=== PATIENT | male | born 1975 | race Caucasian/White ===

== ENCOUNTER → 2020-07-25 14:08 | Outpatient (CLI) | payer BC, SELFPAY ==
--- NOTE | ~2020-07-25 | XR_ITS ---
EXAMINATION: SACRUM/COCCYX DATE: 07/25/2020 14:39 INDICATION: Low back pain after fall TECHNIQUE: Three views sacrum/coccyx FINDINGS: No prior studies for comparison. There is no displaced fracture of the sacrum. The coccyx demonstrates overall normal morphology with out acute angulation.Moderate degenerative changes at L5-S1. IMPRESSION: 1. No acute displaced osseous abnormality of the sacrum. Suspicion for occult or nondisplaced sacral fracture can either be evaluated with CT or MRI. 2. Grossly normal morphology to the coccyx without acute angulation. However, due to the wide range of normal variation of the coccyx, acute injury would be best evaluated by clinical examination and patient's symptoms. Reviewed, dictated and finalized at location B.
== END ==
PROVIDERS: PCP Family Medicine; Visit Provider Nurse Practitioner Family
DX: S39.92XA Unspecified injury of lower back, initial encounter (principal); W19.XXXA Unspecified fall, initial encounter
CPT/HCPCS: 72220

== ENCOUNTER → 2021-08-04 13:30 | Outpatient (REF) | payer BC, SELFPAY | LOC: ANHLAB 13:30 | PROVIDERS: PCP Family Medicine; Visit Provider Nurse Practitioner | DX: L72.0 Epidermal cyst (principal) | CPT/HCPCS: 88304 ==

== ENCOUNTER 2022-09-28 00:04 | Day surgery (SDC) | payer BC, SELFPAY ==
[2022-09-21 10:00] VITALS: BMI 33.9
--- NOTE | 2022-09-21 10:06 | PC.NURSE ---
Report to the Outpatient Waiting Room, entrance under the green pavilion located off [facility], at time 1000 on date 09/28/22. Planned Procedure Time: 1200. Time changes happen often and if your time is changed the preop area will call you the afternoon before. - You and your visitor will be asked to self-screen and do not enter if you have any COVID symptoms. - We encourage only one visitor and NO visitors under age 16 are allowed at this time. Your visitor will receive communication by the phone number that is given day of service. - The patient visitor is requested to social distance or may leave the building when not with patient due to restrictions. - A mask is OPTIONAL within the hospital. Patients may have clear liquids (water, carbonated beverages, clear teas, apple juice) until 3 hours prior to surgery with a maximum of 20 ounces. - No food from midnight until time of surgery Take the following medications with a SIP of water the morning of surgery: INHALER IF NEEDED Medications to discontinue per physician: N/A Date to take last dose: N/A Please no make-up, nail slovenian, hairspray, perfume, deodorant, or body powder the day of surgery. No jewelry (including any body piercings) or valuables the day of surgery, leave them at home. Please take a shower or bath the night before, or the morning of, surgery with an antibacterial soap. Wear comfortable, loose fitting clothing. - Jewelry must be removed prior to entering the operating room. Rings and piercings that are not removed may be cut off. - The hospital will not accept responsibility for valuables. - Please leave all valuables, including medications, at home the day of surgery. If you are going home after surgery, a licensed truss driver helper must drive you home. - NO public transportation without another adult. - We recommend that an adult stay with you for 24 hours following discharge. - We also recommend that you do not drive, make important decision, drink alcoholic beverages, or take any drugs that were not prescribed by your health care provider for at least 24 hours after your discharge time. Follow any additional instructions given to you from your surgeon. If you or anyone in your household have experienced Covid symptoms in the past week, please notify your surgeon or the nurse liaison at the phone number below for possible testing. Telephone instructions given to PT - LIBBY TORRES and asked if any additional questions and then verbalized understanding. Patient advised to call surgeon office or pre surgery nurse liaison [phone] if any additional questions.
--- NOTE | 2022-09-25 15:58 | P.PNAN_ITS ---
Anes - Initial Pre Proc Eval Procedure: Operation Date: 09/28/22 12:00 Proposed Procedures p Rectal Exam Under Anesthesia with Excision of External Hemorrhoids - Tobin Cardoso DO Date/Time: 09/25/22 15:58 Surgeon: Tobin Cardoso DO Pre Op Diagnosis: external hemorrhoids Patient Data Age: 47 Gender: M Height: 1.83 m Weight: 113.4 kg Allergies Allergy/AdvReac Type Severity Reaction Status Date / Time No Known Allergies Allergy Verified 09/21/22 09:59 Home Medications Medication Instructions Recorded Confirmed Type albuterol sulfate 90 mcg/actuation 1 inh inhalation Q4H PRN shortness 02/11/22 09/21/22 Rx aerosol inhaler (ProAir HFA) of breath or wheezing #6.7 grams cetirizine 10 mg capsule (Zyrtec) 10 mg PO DAILY PRN Allergy Symptoms 03/16/22 09/21/22 History Patient hx anesthesia problems: none Family hx anesthesia problems: none Results Review: All pre-operative results and documents have been reviewed as part of the pre- operative evaluation. [facility]LY [facility] Past Medical History Medical History (Updated 09/25/22 @ 15:59 by Flash Delgado MD) BMI 32.0-32.9,adult BMI 34.0-34.9,adult Bronchitis Heartburn Hemorrhoids Low vitamin D level Obesity HERLINDA (obstructive sleep apnea) Surgical History Surgical History History of surgical removal of ganglion cyst Family History Family History Mother Peripheral arterial disease Grandparent Family history of coronary artery disease Social History Social History Smoking packs per day: 0.5 Smoking cigarettes per day: 10.0 Years smoked: 15 Smoking pack-years: 7.50 Smoking status: Former smoker Tobacco type: cigarettes Smoking end date: 11/08/11 Alcohol intake: current Drinks per week: 10 Substance use: current Substance use type: marijuana Living arrangements: with family 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 Informed Consent: The patient's anesthetic plan and its attendant risks and benefits were discussed with the patient/family/POA. Questions were solicited and answers provided to the satisfaction of the patient/family/POA.
[2022-09-28] VITALS (7 sets, daily range): BP systolic 119–135; BP diastolic 78–93; PULSE 60–89; RESP 13–20; TEMP 36.2; O2SAT 100
--- NOTE | 2022-09-28 10:43 | PM.IMHP ---
H&P: HPI History of Present Illness Date/Time: 09/28/22 10:43 Chief Complaint: External hemorrhoid Narrative: 47 yo man presents for excision of external hemorrhoid. He reports no changes since last seen in office. Review of Systems Review of Systems: All systems reviewed & are unremarkable except as noted in HPI and below Constitutional: Constitutional: Denies chills, Denies fever(s), Denies headache(s) and Denies weight loss Eyes: Eyes: Denies change in vision ENT: Denies dizziness, Denies headache(s), Denies neck mass and Denies throat swelling Cardiovascular: Cardiovascular: Denies chest pain, Denies lightheadedness and Denies dyspnea Respiratory: Respiratory: Denies cough, Denies dyspnea and Denies wheezing Gastrointestinal: Gastrointestinal: Denies abdominal pain, Denies change in bowel habits, Denies nausea and Denies vomiting Genitourinary: Genitourinary: Denies hematuria and Denies dysuria Musculoskeletal: Musculoskeletal: Reports as per HPI Integumentary/Breasts: Skin/Breast: Reports as per HPI Neurologic: Denies dizziness and Denies headache(s) Allergic/Immunologic: Allergic/Immunologic: Denies throat swelling and Denies wheezing [facility] Past Medical History Medical History (Updated 09/25/22 @ 15:59 by Flash Delgado MD) BMI 32.0-32.9,adult BMI 34.0-34.9,adult Bronchitis Heartburn Hemorrhoids Low vitamin D level Obesity HERLINDA (obstructive sleep apnea) Surgical History Surgical History History of surgical removal of ganglion cyst Family History Family History Mother Peripheral arterial disease Grandparent Family history of coronary artery disease Social History Social History Smoking packs per day: 0.5 Smoking cigarettes per day: 10.0 Years smoked: 15 Smoking pack-years: 7.50 Smoking status: Former smoker Tobacco type: cigarettes Smoking end date: 11/08/11 Alcohol intake: current Drinks per week: 10 Substance use: current Substance use type: marijuana Living arrangements: with family 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 Gender identity (if verbalized by the patient): Male Spiritual care concerns: No Meds Home Medications and Allergies Home Medications Medication Instructions Recorded Confirmed Type albuterol sulfate 90 mcg/actuation 1 inh inhalation Q4H PRN shortness 02/11/22 09/21/22 Rx aerosol inhaler (ProAir HFA) of breath or wheezing #6.7 grams cetirizine 10 mg capsule (Zyrtec) 10 mg PO DAILY PRN Allergy Symptoms 03/16/22 09/21/22 History Allergies Allergy/AdvReac Type Severity Reaction Status Date / Time No Known Allergies Allergy Verified 09/28/22 10:44 Exam Const: General: no acute distress and alert Orientation/consciousness: patient oriented x3 HENMT: Head: normocephalic and atraumatic Ears: hearing grossly normal bilaterally Face/Nose/Sinus: Normal nares present Mouth: Yes Normal oral and palatal mucosa present Eyes: Periorbital: periorbital findings normal Sclera: sclerae normal EOM: EOMs intact bilaterally Neck: Neck: normal visual inspection, no lymphadenopathy and trachea midline Chest: Chest palpation & inspection: normal inspection of the chest Resp: Effort & Inspection: normal respiratory effort Auscultation: clear to auscultation bilaterally Cardio: Jugular venous distension: no JVD Rate: regular rate Rhythm: regular rhythm Heart sounds: S1 normal heart sound present and S2 normal heart sound present Peripheral pulses: Peripheral pulses 2+ throughout GI: Inspection: normal to inspection GI Palp: Yes Soft to palpation, No Tenderness to palpation present (GI), No Guarding due to palpation present (GI) and No Rebound tenderness present Percussion: Yes normal to percussion Auscultation: normal bowel so
--- NOTE | 2022-09-28 10:45 | WPDHPUPDATE1 ---
History and Physical Update Update Date/Time: 09/28/22 10:45 History and Physical has been reviewed, including an updated exam of the patient. There are NO changes in the patient's condition. Risks, benefits, and alternatives have been discussed and questions answered. Patient agrees to proceed with procedure.
[2022-09-28] MEDS: ACETAMINOPHEN 500 MG TABLET 1000 MG PO (10:46)
[2022-09-28] MEDS: LACTATED RINGERS 1,000 ML 30 ML IV CONT (10:59)
[2022-09-28] MEDS: KETOROLAC 15 MG/ML VIAL (*BKC) IV PUSH (11:00)
[2022-09-28] MEDS: LIDO 2%/EPINEPHRINE 1:100,000 50 ML VIAL INFILTRATE (12:29)
--- NOTE | 2022-09-28 12:49 | P.OP_ITS ---
Procedure Note - Detailed Date of Procedure 09/28/22 Pre-op Diagnosis external hemorrhoids Post-op Diagnosis Same Procedure Performed Rectal exam under anesthesia with external hemorrhoidectomy Surgeon Tobin Cardoso, DO Anesthesia General and Local ( 2% lidocaine with epinephrine) Indications this is a 47-year-old man who presented with external hemorrhoid that intermittently was causing swelling and bleeding. He mostly noticed blood with wiping. He denied any blood dripping into the toilet. He was found to have a right posterior external hemorrhoid skin tag on exam. Discussions were made with the patient about treatment options and decision was made to proceed with rectal exam under anesthesia with external hemorrhoidectomy. Findings Rectal exam under anesthesia was performed. Patient had a right posterior external hemorrhoid skin tag. This was possibly a sentinel tag from a prior fissure that healed. There was some scarring in the right posterior region suggestive of a possible previous fissure. The patient also had some slightly engorged internal hemorrhoid tissue, but this did not appear to be bleeding. The external hemorrhoid in the right posterior region was excised with the skin tag and this was sent to the lab for pathology. Description of Procedure Procedure as well as risks, benefits, and alternatives were discussed with the patient. Written consent was obtained and placed in chart prior to procedure. Patient was brought back to surgical suite. He was placed supine on operating table. Time-out was done to confirm patient and procedure. He was then intuba edil by the anesthesia department. He was then placed in dorsal lithotomy position in stirrups. His perirectal region was prepped and draped in sterile fashion using Betadine prep. Digital rectal exam was initially performed. A Hill-Miller anoscope was then inserted and the anal rectal canal was carefully inspected. 2% lidocaine with epinephrine was then infiltrated at the base of the right posterior external hemorrhoid. A 15 blade scalpel was used to make an elliptical incision around the hemorrhoid. The hemorrhoid tissue was completely excised using the 15 blade scalpel. Electrocautery was then used for hemostasis. The anoderm was then reapproximated using 3-0 chromic simple interrupted sutures. The area was irrigated with sterile saline. No other bleeding or abnormalities were noted. Xeroform gauze was then applied over the incision followed by fluff gauze, ABD pad, and mesh underwear. Patient was then awakened from anesthesia, extubated, and transferred to recovery. Estimated Blood Loss 5 Pathology Yes ( External hemorrhoid) Complications No immediate complications Condition Stable Disposition Same day [facility] Billing Surgery - Charge Forward: Surgery Billing
== END 2022-09-28 14:07 | disposition home or self-care (01) ==
PROVIDERS: PCP Family Medicine; Visit Provider Surgery
PROC: (CPT 46999; principal; 2022-09-28 12:00)
DX: K64.4 Residual hemorrhoidal skin tags (principal); G47.33 Obstructive sleep apnea (adult) (pediatric); E66.9 Obesity, unspecified; Z68.32 Body mass index [BMI] 32.0-32.9, adult; Z87.891 Personal history of nicotine dependence; Z79.51 Long term (current) use of inhaled steroids; F12.90 Cannabis use, unspecified, uncomplicated
CPT/HCPCS: 46999; 88304; 88342; A9270; C9290; J1885; J2250; J2704; J3010; J7120

== ENCOUNTER 2024-03-24 08:26 | Outpatient (CLI) | payer BC, SELFPAY ==
[2024-03-24 09:00] LABS: Hematocrit 47.1 % (42.0-52.0); Hemoglobin 15.6 g/dL (14.0-18.0); Mean Corpuscular HGB Conc 33.1 g/dl (32-36); Mean Corpuscular Hemoglobin 29.6 pg (26-34); Mean Corpuscular Volume 89.4 fl (80-100); Mean Platelet Volume 10.3 fl (7.4-10.4); Platelet Count Result 253 k/mm3 (150-375); Red Blood Count 5.27 M/mm3 (4.6-6.20); White Blood Count 5.6 K/mm3 (4.5-10.0)
[2024-03-24 09:07] LABS: Alanine Aminotransferase 21 U/L (6-50); Albumin Level 4.6 g/dL (3.5-5.1); Alkaline Phosphatase 47 U/L (38-126); Anion Gap 5 mmol/L (4-12); Aspartate Amino Transferase 25 U/L (17-59); Bilirubin,Total 0.7 mg/dL (0.2-1.3); Blood Urea Nitrogen 16 mg/dL (9-20); Calcium 9.3 mg/dL (8.4-10.2); Carbon Dioxide 26 mmol/L (22-30); Chloride 107 mmol/L (98-107); Cholesterol 193 mg/dL (0-200); Estimated Glomerular Filt Rate > 60; Glucose 122 mg/dL (65-110); HDL Direct 49 mg/dL; Potassium 4.4 mmol/L (3.4-5.0); Sodium 138 mmol/L (137-145); Triglycerides 114 mg/dL (<150)
[2024-03-24 09:20] LABS: LDL Cholesterol Direct 120 mg/dL
[2024-03-24 09:32] LABS: Iron 74 ug/dL (49-181)
[2024-03-24 09:36] LABS: Vitamin D 25 Hydroxy 36.4 ng/mL
[2024-03-24 09:45] LABS: Percent Iron Saturation 24 % (20-50)
[2024-03-28 13:53] LABS: Testosterone Free 50.3 pg/mL (35.0-155.0); Testosterone Total 331 ng/dL (250-1100)
== END 2024-03-24 08:27 | disposition home or self-care (01) ==
PROVIDERS: PCP Family Medicine; Visit Provider Nurse Practitioner Family
DX: R79.89 Other specified abnormal findings of blood chemistry (principal); N52.9 Male erectile dysfunction, unspecified; G25.81 Restless legs syndrome; Z13.1 Encounter for screening for diabetes mellitus; Z13.220 Encounter for screening for lipoid disorders; Z13.29 Encounter for screening for other suspected endocrine disorder
CPT/HCPCS: 36415; 80053; 80061; 82306; 82607; 83540; 83550; 84153; 84402; 84403; 84443; 85027; G0103

== ENCOUNTER 2024-03-24 14:06 | Outpatient (CLI) | payer BC, SELFPAY ==
[2024-03-27 17:43] LABS: Prostate Specific Antigen 1.4 ng/mL (< OR = 4.0)
== END 2024-03-24 14:30 | disposition home or self-care (01) ==
LOC: ANHLAB 04-12 14:06
PROVIDERS: PCP Family Medicine; Visit Provider Nurse Practitioner Family
DX: Z12.5 Encounter for screening for malignant neoplasm of prostate (principal)
CPT/HCPCS: 36415; 84153; G0103

== ENCOUNTER 2025-03-14 12:53 | Outpatient (CLI) | payer BC, SELFPAY ==
--- NOTE | 2025-03-14 14:30 | NEURO_ITS ---
Impression: # Complains of numbness of feet.No h/o diabetes. ? # Early axonal motor/sensory neuropathy. ? # Needle/EMG exam mildly neurogenic in bilateral EDB. Nerve Conduction Studies Anti Sensory Summary Table ?Stim Site NR Peak (ms) P-T Amp (?V) Site1 Site2 Delta-P (ms) Dist (cm) Hernandez (m/s) Left Sup Fibular Anti Sensory (Ant Lat Mall) 14 cm ? 3.7 7.0 14 cm Ant Lat Mall 3.7 16.0 43 Right Sup Fibular Anti Sensory (Ant Lat Mall) 14 cm ? 3.9 10.5 14 cm Ant Lat Mall 3.9 16.0 41 Left Sural Anti Sensory (Lat Mall) Calf ? 4.3 16.2 Calf Lat Mall 4.3 16.0 37 Right Sural Anti Sensory (Lat Mall)??? NO RESPONSE Calf NR Calf Lat Mall 16.0 Motor Summary Table ?Stim Site NR Onset (ms) O-P Amp (mV) Site1 Site2 Delta-0 (ms) Dist (cm) Hernandez (m/s) Left Peroneal Motor (Vastus Med) Ankle ? 4.8 0.4 Popit Ankle 10.1 44.0 44 Popit ? 14.9 2.4 Right Peroneal Motor (Vastus Med) Ankle ? 4.8 1.2 Popit Ankle 9.6 43.0 45 Popit ? 14.4 1.0 Left Tibial Motor (Abd Urrutia Brev) Ankle ? 4.7 0.7 Knee Ankle 11.0 44.0 40 Knee ? 15.7 1.7 Right Tibial Motor (Abd Urrutia Brev) Ankle ? 4.7 4.0 Knee Ankle 10.1 43.0 43 Knee ? 14.8 2.9 F Wave Studies ?NR F-Lat (ms) L-R F-Lat (ms) Left Peroneal (Mrkrs) (EDB) ? 62.98 1.29 Right Peroneal (Mrkrs) (EDB) ? 61.69 1.29 Left Tibial (Mrkrs) (Abd Hallucis) ? 62.91 1.61 Right Tibial (Mrkrs) (Abd Hallucis) ? 61.30 1.61 EMG ?Side Muscle Nerve Root Ins Act Fibs Amp Dur Recrt Comment Right AntTibialis Dp Br Fibular L4-5 Nml Nml Nml Nml Nml Right Gastroc Tibial S1-2 Nml Nml Nml Nml Nml Right Fibularis Long Sup Br Fibular L5-S1 Nml Nml Nml Nml Nml Right Flex Dig Long Tibial L5-S2 Nml Nml Nml Nml Nml Right Ext Dig Brev Dp Br Fibular L5, S1 Nml Nml Nml >12ms +1 Right QuadratusFem QuadFemoris L4-5, S1 Nml Nml Nml Nml Nml Left AntTibialis Dp Br Fibular L4-5 Nml Nml Nml Nml Nml Left Gastroc Tibial S1-2 Nml Nml Nml Nml Nml Left Fibularis Long Sup Br Fibular L5-S1 Nml Nml Nml Nml Nml Left Flex Dig Long Tibial L5-S2 Nml Nml Nml Nml Nml Left Ext Dig Brev Dp Br Fibular L5, S1 Nml Nml Nml >12ms +1 Left QuadratusFem QuadFemoris L4-5, S1 Nml Nml Nml Nml Nml MTDD
== END 2025-03-14 12:54 | disposition home or self-care (01) ==
LOC: ANHNEURO 12:57
PROVIDERS: PCP Family Medicine; Visit Provider Family Medicine
DX: G60.0 Hereditary motor and sensory neuropathy (principal)
CPT/HCPCS: 95886; 95910

== ENCOUNTER 2025-03-26 07:46 | Outpatient (CLI) | payer BC, SELFPAY ==
[2025-03-26 08:04] LABS: Hematocrit 46.8 % (42.0-52.0); Hemoglobin 15.4 g/dL (14.0-18.0); Mean Corpuscular HGB Conc 32.9 g/dl (32-36); Mean Corpuscular Hemoglobin 29.2 pg (26-34); Mean Corpuscular Volume 88.8 fl (80-100); Mean Platelet Volume 9.9 fl (7.4-10.4); Platelet Count Result 253 k/mm3 (150-375); Red Blood Count 5.27 M/mm3 (4.6-6.20); Red Cell Distribution Width 13.2 % (11.5-14.5); White Blood Count 7.7 K/mm3 (4.5-10.0)
[2025-03-26 08:16] LABS: Anion Gap 6 mmol/L (4-12); Blood Urea Nitrogen 18 mg/dL (9-20); Calcium 9.4 mg/dL (8.4-10.2); Carbon Dioxide 32 mmol/L (22-30); Chloride 103 mmol/L (98-107); Cholesterol 235 mg/dL (0-200); Estimated Glomerular Filt Rate > 60; Glucose 113 mg/dL (65-110); HDL Direct 68 mg/dL; Potassium 4.2 mmol/L (3.4-5.0); Sodium 141 mmol/L (137-145); Triglycerides 127 mg/dL (<150)
[2025-03-26 08:23] LABS: Hemoglobin A1C 5.4 % (<5.7)
[2025-03-26 08:27] LABS: LDL Cholesterol Direct 124 mg/dL
[2025-03-26 08:46] LABS: Prostate Specific Antigen 1.5 ng/mL (< OR = 4.0)
[2025-03-26 09:29] LABS: Free T4 Free Thyroxine 1.21 ng/dL (0.78-2.19); Vitamin D 25 Hydroxy 49.1 ng/mL
== END 2025-03-26 07:47 | disposition home or self-care (01) ==
PROVIDERS: PCP Family Medicine; Referring Provider Physician Assistant Medical; Visit Provider Family Medicine
DX: Z13.220 Encounter for screening for lipoid disorders (principal); Z12.5 Encounter for screening for malignant neoplasm of prostate; R73.09 Other abnormal glucose; R20.0 Anesthesia of skin; R20.2 Paresthesia of skin; R79.89 Other specified abnormal findings of blood chemistry; E55.9 Vitamin D deficiency, unspecified
CPT/HCPCS: 36415; 80048; 80061; 82306; 82607; 83036; 84153; 84439; 84443; 85027; G0103

== ENCOUNTER 2025-04-11 07:52 | Outpatient (CLI) | payer BC, SELFPAY ==
--- NOTE | ~2025-04-11 | MR_ITS ---
MRI of the lumbar spine Clinical History: Anesthesia scan Technique: Axial T2-weighted images, and sagittal T1-weighted, T2-weighted, and and T2 fat-sat images were acquired. Findings: There is no fracture or subluxation of the lumbar spine. Vertebral bodies maintain normal h eight and alignment. No bone marrow signal abnormality seen. At L1-L2, L2-L3, L3-L4, the intervertebral discs maintain normal signal and position. No disc bulge o r herniation at these levels. No spinal canal stenosis or neural foraminal narrowing at these levels. At L4-L5, there is moderate degenerative distended. There is diffuse disc bulge with mild to moderate facet arthropathy. No central canal stenosis. There is preservation of the right neural foramen. The re is minimal right neural foraminal narrowing. At L5-S1, there is severe degenerative disc narrowing. There is mild disc bulge with moderate facet a rthropathy. No central canal stenosis. There is mild to moderate left neural foraminal narrowing. Rig ht neural foramen preserved. Paravertebral soft tissues are unremarkable. Impression: [id number] degenerative spondylitic changes at L4-L5 and L5-S1, as detailed above. Reviewed, dictated and finalized at location M. Impression: [id number] degenerative spondylitic changes at L4-L5 and L5-S1, as detail ed above.
== END 2025-04-11 07:53 | disposition home or self-care (01) ==
PROVIDERS: PCP Family Medicine; Visit Provider Physician Assistant Medical
DX: M47.816 Spondylosis without myelopathy or radiculopathy, lumbar region (principal); M47.817 Spondylosis without myelopathy or radiculopathy, lumbosacral region; G25.81 Restless legs syndrome
CPT/HCPCS: 72148

== ENCOUNTER 2025-05-10 12:47 | Outpatient (CLI) | payer BC, SELFPAY ==
--- NOTE | 2025-05-21 14:43 | PFT_ITS ---
This report was moved to the correct visit on 05/23/2025. The original report was signed by Charles Alex MD on 05/21/25 [id number]. PFT Procedure Performed PFT Procedure Performed Spirometry with Pre/Post Bronchodilator Plethysmography (Lung Vol) Diffusing Cap (DLCO) Flow Vol Loop PFT Interpretation This is a pulmonary function test with pre and post-bronchodilator spirometry, plethysmography and diffusing capacity. The test was performed and results interpreted in accordance with the 2019 and 2005 ATS/ERS Task Force guidelines respectively using the Global Lung Function Initiative-2012 reference equations. Patient demonstrated good effort and cooperation. Reproducibility criteria were met. The quality of the pre bronchodilator spirometry maneuver was Grade A and post bronchodilator spirometry maneuver was Grade A. Findings: Spirometry: There is decreased maximal expiratory airflow at all lung volumes with concave expiratory flow tracing. The contour the inspiratory flow tracing is normal. The pre bronchodilator FVC is 3.70 L, 69% predicted. The pre bronchodilator FEV1 is 2.62 L, 62% predicted. The pre bronchodilator FEV1: FVC ratio 71%. The post bronchodilator FVC is 3.99 L, representing an 8% increase. The post bronchodilator FEV1 is 2.93 L, representing a 12% increase. The post bronchodilator FEV1: FVC ratio is 73%. Plethysmography: The total lung capacity is 6.08 L, 82% predicted. The functional residual capacity is 2.97 L, 78% predicted. The residual volume is 1.97 L, 93% predicted. The slow vital capacity is 4.11 L, 76% predicted. Diffusing capacity: The diffusing capacity unadjusted for hemoglobin and carboxyhemoglobin is 23.8, 75% predicted. The diffusing capacity adjusted for alveolar volume is 5.03, 112% predicted. Impression: The FEV1 is less than 80% predicted and the FEV1: FVC ratio is greater than 70% consistent with Preserved Ratio Impaired Spirometry (PRISm) with a low FVC. In addition, the slow vital capacity is greater than forced vital capacity with a concave expiratory tracing. This is suggestive of small airways disease. There is significant improvement after inhaling a single dose of albuterol. The lung volumes are normal. The diffusing capacity is normal. There are no prior studies for comparison Please be advised this is a medical document. It is intended for [id number] communication. It is written in medical language and may contain unfamiliar abbreviations or verbiage. Medical documents are intended to carry relevant information, facts as evident, and the clinical opinion of the practitioner at the time of the encounter. This report may have been done utilizing a voice recognition system. Attempts have been made to correct errors. However, there may be uncorrected grammatical, spelling, and recognition errors present. The file time of this note does not necessarily represent the time the patient was seen. Report Initialized date/time: Charles Alex MD 05/21/25 / 1443 Electronically signed by: Charles Alex MD 05/21/25 [id number]
--- NOTE | 2025-06-02 20:12 | P.PCNPFT_ITS ---
PFT Procedure Performed PFT Procedure Performed Spirometry with Pre/Post Bronchodilator Plethysmography (Lung Vol) Diffusing Cap (DLCO) Flow Vol Loop PFT Interpretation DOS: 05/10/2025 REQUESTING: MARCELO Case REASON FOR TESTING: Cough PULMONARY FUNCTION TESTS Results are reliable and reproducible. Repeatability of spirometry FEV1 maneuver pre and post bronchodilator is Grade A. Dillon: GLI 2012 reference equations were used. Spirometry: The pre-bronchodilator FEV1 is 2.62 L, 62%, decreased. The pre- bronchodilator FVC is 3.70 L, 69%, decreased. The FEV1/FVC ratio is 71%, normal. After bronchodilator, the FEV1 is 2.93 L, 69%, +12%. After bronchodilator, the FVC is 3.99 L, 74%, +8%. The FEV1/FVC ratio is 73%. Lung volumes: The total lung capacity is 6.08 L, 82%, normal. The FRC is 2.97 L, 78%, normal. The residual volume is 1.97 L, 93%, normal. The RV/TLC is 32%. Airway resistance is increased. Diffusion: DLCO is 23.8, 75%. The DLCO/VA is 5.03, 112%. Flow volume loop: The flow volume loop shows coving of the expiratory limb. IMPRESSION: This study shows a moderate decrease in FEV1 with normal FEV1/FVC ratio. Kendra Herrera MD
== END 2025-05-10 12:48 | disposition home or self-care (01) ==
PROVIDERS: PCP Family Medicine; Visit Provider Physician Assistant Medical
DX: R05.9 Cough, unspecified (principal); R06.02 Shortness of breath
CPT/HCPCS: 94060; 94726; 94729

== ENCOUNTER 2025-05-21 08:02 | Outpatient (CLI) | payer BC, SELFPAY ==
--- NOTE | 2025-05-21 14:40 | WPDPFTINT ---
PFT Procedure Performed PFT Procedure Performed Spirometry with Pre/Post Bronchodilator Plethysmography (Lung Vol) Diffusing Cap (DLCO) Flow Vol Loop PFT Interpretation This is a pulmonary function test with pre and post-bronchodilator spirometry, plethysmography and diffusing capacity. The test was performed and results interpreted in accordance with the 2019 and 2005 ATS/ERS Task Force guidelines respectively using the Global Lung Function Initiative-2012 reference equations. Patient demonstrated good effort and cooperation. Reproducibility criteria were met. The quality of the pre bronchodilator spirometry maneuver was Grade A and post bronchodilator spirometry maneuver was Grade A. Findings: Spirometry: There is decreased maximal expiratory airflow at all lung volumes with concave expiratory flow tracing. The contour the inspiratory flow tracing is normal. The pre bronchodilator FVC is 3.70 L, 69% predicted. The pre bronchodilator FEV1 is 2.62 L, 62% predicted. The pre bronchodilator FEV1: FVC ratio 71%. The post bronchodilator FVC is 3.99 L, representing an 8% increase. The post bronchodilator FEV1 is 2.93 L, representing a 12% increase. The post bronchodilator FEV1: FVC ratio is 73%. Plethysmography: The total lung capacity is 6.08 L, 82% predicted. The functional residual capacity is 2.97 L, 78% predicted. The residual volume is 1.97 L, 93% predicted. The slow vital capacity is 4.11 L, 76% predicted. Diffusing capacity: The diffusing capacity unadjusted for hemoglobin and carboxyhemoglobin is 23.8, 75% predicted. The diffusing capacity adjusted for alveolar volume is 5.03, 112% predicted. Impression: The FEV1 is less than 80% predicted and the FEV1: FVC ratio is greater than 70% consistent with Preserved Ratio Impaired Spirometry (PRISm) with a low FVC. In addition, the slow vital capacity is greater than forced vital capacity with a concave expiratory tracing. This is suggestive of small airways disease. There is significant improvement after inhaling a single dose of albuterol. The lung volumes are normal. The diffusing capacity is normal. There are no prior studies for comparison
--- NOTE | 2025-06-17 15:32 | WPDSLEEPSTUD ---
Sleep Study Date of Study: 05/21/25 Ordering Provider: Neto Stone MD Interpreting Physician: Ni Webb, Sleep Study Type: Polysomnogram Height: 1.83 m Weight: 112.037 kg Body Mass Index: 33.5 Neck Circumference (inches): 17.5 [place]: 4 Reason for Sleep Study Previously diagnosed with HERLINDA but couldn't tolerate CPAP. Sleep History The patient is a 50-year-old male with history of sleep apnea that had a sleep study ordered by his primary care physician for re-evaluation of sleep apnea. The patient denies awakening from sleep short of breath. He rarely awakens at night with heartburn, belching or cough. He rarely snores and is never loud enough that others complain. He occasionally has trouble sleeping when he has a cold. He rarely wakes up gasping for air throughout the night. He rarely has breathing problems at night observed by himself or others. He occasionally sweats excessively at night. He denies having heart palpitations or irregular heartbeats during the night. He denies falling asleep during the day and while driving. He denies sleep paralysis and cataplexy. He denies having trouble at school or work due to sleepiness. He rarely experiences vivid dreamlike scenes upon awakening or falling asleep. He denies feeling afraid of going to sleep. He denies having nightmares. He occasionally remembers his dreams. He frequently has thoughts racing through his mind. He denies feeling sad or depressed. He occasionally has anxiety. He rarely has muscular tension. He rarely notices parts of his body jerk. He denies kicking during the night. He frequently has crawling and aching feelings in his legs and occasionally has leg pain during the night. He denies grinding his teeth during sleep and denies awakening with morning jaw pain. He is rarely awakened by pain during the night. He occasionally wakes up feeling stiff in the morning. He rarely wakes up with sore or achy muscles. He occasionally wakes up with pain in the neck, spine and other joints. He goes to bed at midnight on weekdays and between 2-3 a.m. on the weekends. He wakes up 2-3 times throughout the night to adjust his position and is able to fall back asleep quickly. He wakes up at 7:00 a.m. on weekdays and between 10 to 10:30 a.m. on the weekends. He typically gets 6-1/2-7 hours of sleep per night. He does not stay in bed long after waking up in the morning. He currently lives with his . He will occasionally consume caffeinated tea within 2 hours of bedtime. He denies engaging in physical exercise before bedtime. He will watch television before falling asleep. He denies taking naps in the afternoon or the evening. He consumes 24-32 oz of caffeinated beverage per day. He quit smoking cigarettes 13 in half years ago. He consumes 4-5 alcoholic beverages per week. He does use an unspecified recreational drug. [facility] Past Medical History Medical History HERLINDA (obstructive sleep apnea) Bronchitis BMI 32.0-32.9,adult Low vitamin D level Hemorrhoids BMI 34.0-34.9,adult Obesity Heartburn Surgical History Surgical History H/O: hemorrhoidectomy REUA, Excision of external hemrrhoids on 09/28/22 History of surgical removal of ganglion cyst Family History Family History Mother Peripheral arterial disease Grandparent Family history of coronary artery disease Social History Social History Smoking packs per day: 0.5 Smoking cigarettes per day: 10.0 Years smoked: 15 Smoking pack-years: 7.50 Smoking status: Former smoker Tobacco type: cigarettes Smoking end date: 11/08/11 Alcohol intake: current Drinks per week: 10 Substance use: current Substance use type: marijuana Do You Feel Safe in your Home?: Yes Lack of Transportation: No Lack of Food: Never True Current Housing: I Have Housing Concerned About Future Housing: No Difficulty Paying Gas/Electric Bills: No Difficulty Paying for Meds: No Currently Unemployed: No Education: High School Diploma/GED Difficulty w/ Childcare or Family Care: No Living arrangements: with family Occupation/Education: occupation Additional occupation/education comments: [employer] Gender identity (if verbalized by the patient): Male Spiritual care concerns: No Medications Home Medications ?Medication ?Instructions ?Recorded ?Confirmed ?Type gabapentin 100 mg capsule 100 mg PO QHS #90 caps 03/26/25 Rx albuterol 90 mcg-budesonide 80 2 inh inhalation ONCE #10.7 grams 05/25/25 Rx mcg/actuation HFA aerosol inhaler (Airsupra) fluticasone furoate 100 1 inh inhalation DAILY #60 ea 05/25/25 Rx mcg-vilanterol 25 mcg/dose inhalation powder (Breo Ellipta) Sleep Procedure A full night polysomnogram using the [employer] multi-channel system recorded the standard physiologic parameters including EEG, EOG, submentalis EMG, anterior tibialis EMG, EKG, body position, nasal and oral airflow using nasal pressure sensor and thermistor.? Respiratory parameters of chest and abdominal movements were recorded with Respiratory Inductance Plethysmography belts. Oxygen saturation was recorded by pulse oximetry. Video monitoring was also performed. Sleep stages, periodic limb movements, and EEG arousals were scored in 30 second epochs according to the criteria of the AASM Scoring Manual. The Apnea-Hypopnea Index was calculated using [facility] guidelines for definition of hypopnea with 4% O2 desaturations while scoring respiratory events. Sleep Architecture The total recording time was 423.2 minutes.? The total sleep time was 308.0 minutes. Sleep latency was 11.3 minutes. REM latency was 232.5 minutes. Sleep efficiency was 72.8%. The patient had 32 awakenings for an awakening index of 6.2. Wake after sleep onset time was 104.0 minutes. The patient spent 41.5 minutes, 13.5% of total sleep time in Stage N1. The patient spent 192.5 minutes, 62.5% in Stage N2. The patient spent 36.0 minutes, 11.7% in Stage N3. The patient spent 38.0 minutes, 12.3% in Stage REM sleep. Respiratory Analysis The patient had 42 hypopneas for an overall Apnea Hypopnea Index of 8.2. The REM Apnea Hypopnea Index was 56.8. The NREM Apnea Hypopnea Index was 2.0. The patient had a Central Apnea Hypopnea Index of 0. There was no evidence of Ollie-Matos Respirations. Arousals There were 116 total arousals for an arousal index of 22.6. There were 90 spontaneous arousals for an index of 17.5. There were 7 arousals due to respiratory events for an index of 1.4. There were 12 arousals due to periodic limb movements for an index of 2.3.? There were 7 arousals due to isolated limb movements for an index of 1.4. Periodic Limb Movements The patient had 14 isolated limb movements with an index of 2.7. The patient had 185 periodic limb movements with an index of 36.0, which is elevated (normal < 15). Patient had a total of 199 limb movements with a total limb movement index of 38.8. Oximetry Data The patient had an average oxygen saturation of 92.3% in sleep with a minimum oxygen saturation of 76.0% and a maximum oxygen saturation of 96.0%. The patient had 46 oxygen desaturations that were 4% or greater resulting in an Oxygen Desaturation Index of 9.0.? The patient spent 14 minutes, 3.3% of total sleep time with an oxygen saturation below 88%. Snoring Profile Mild to moderate snoring was present throughout the study. Cardiac Profile The EKG showed normal sinus rhythm with frequent PVCs and intermittent bigeminy/trigeminy. The patient had an average pulse rate of 60.7 bpm with a minimum pulse of rate of 30.0 bpm and a maximum pulse rate of 87.0 bpm.? EEG Profile No signs of seizure activity seen. Assessment and Plan Assessment and Plan (1) HERLINDA (obstructive sleep apnea): Code(s): G47.33 - Obstructive sleep apnea (adult) (pediatric) Status: Acute Assessment and Plan: The patient had an overall AHI of 8.2 with desaturation down to 76%. This is consistent with mild sleep apnea. Due to the patient's cardiac arrhythmias, he qualifies for treatment. I recommend that the patient have a CPAP Titration with the use of a hypnotic to ensure we obtain enough sleep data and find an optimal pressure setting. Due to the patient failing CPAP in the past, it would be best if he was re-introduced to CPAP in the sleep lab so we can make sure that the patient is comfortable with the mask and pressure settings to improve compliance. If his insurance company will not cover a CPAP Titration, I recommend that he be prescribed AutoPAP 5-15 cm H2O with close follow up. A mandibular advancement device is also an acceptable treatment option. The patient had a significant number of limb movements during the study with the majority being periodic in nature. The patient's sleep history suggests Restless Leg Syndrome. I recommend that the patient have a serum ferritin drawn for evaluation of iron deficiency anemia. If the patient has a serum ferritin less than 75 ng/mL, I recommend starting a daily iron supplement and a Vitamin C supplement for better absorption. If the serum ferritin is greater than 75 ng/mL, I recommend starting a dopamine agonist and titrating the dose until symptoms resolve. There are nonpharmacological methods to treat limb movements including daily exercise, stretching calf muscles before bed, avoiding excessive amounts of caffeine and alcohol, vitamin B supplementation, magnesium lotion massaged into legs before bed, and use of a weighted blanket. Data The data obtained during this sleep study is adequate for interpretation. Certification This sleep study has been reviewed by a board certified sleep medicine physician.
[2025-06-18 11:48] VITALS: BMI 33.5
== END 2025-05-22 08:02 | disposition home or self-care (01) ==
LOC: ANHCSM 08:03
PROVIDERS: PCP Family Medicine; Visit Provider Family Medicine
DX: G47.33 Obstructive sleep apnea (adult) (pediatric) (principal)
CPT/HCPCS: 95810

== ENCOUNTER 2025-07-31 08:10 | Outpatient (CLI) | payer BC, SELFPAY ==
--- NOTE | 2025-08-27 11:30 | WPDSLEEPSTUD ---
Sleep Study Date of Study: 07/31/25 Ordering Provider: Neto Stone MD Interpreting Physician: Kendra Herrera MD Sleep Study Type: CPAP Titration Height: 1.83 m Weight: 113.852 kg Body Mass Index: 34.0 Neck Circumference (inches): 18.5 [place]: 4 Reason for Sleep Study Known obstructive sleep apnea, requires a CPAP titration * 05/21/2025 PSG; AHI of 8.2, desaturation down to 76%, consistent with mild sleep apnea. Due to the patient's cardiac arrhythmias, he qualifies for treatment. I recommend that the patient have a CPAP Titration with the use of a hypnotic to ensure we obtain enough sleep data and find an optimal pressure setting. Due to the patient failing CPAP in the past, it would be best if he was re-introduced to CPAP in the sleep lab so we can make sure that the patient is comfortable with the mask and pressure settings to improve compliance. Sleep History This history is obtained from his 05/21/2025 polysomnogram. The patient is a 50-year-old male with history of sleep apnea that had a sleep study ordered by his primary care physician for re-evaluation of sleep apnea. The patient denies awakening from sleep short of breath. He rarely awakens at night with heartburn, belching or cough. He rarely snores and is never loud enough that others complain. He occasionally has trouble sleeping when he has a cold. He rarely wakes up gasping for air throughout the night. He rarely has breathing problems at night observed by himself or others. He occasionally sweats excessively at night. He denies having heart palpitations or irregular heartbeats during the night. He denies falling asleep during the day and while driving. He denies sleep paralysis and cataplexy. He denies having trouble at school or work due to sleepiness. He rarely experiences vivid dreamlike scenes upon awakening or falling asleep. He denies feeling afraid of going to sleep. He denies having nightmares. He occasionally remembers his dreams. He frequently has thoughts racing through his mind. He denies feeling sad or depressed. He occasionally has anxiety. He rarely has muscular tension. He rarely notices parts of his body jerk. He denies kicking during the night. He frequently has crawling and aching feelings in his legs and occasionally has leg pain during the night. He denies grinding his teeth during sleep and denies awakening with morning jaw pain. He is rarely awakened by pain during the night. He occasionally wakes up feeling stiff in the morning. He rarely wakes up with sore or achy muscles. He occasionally wakes up with pain in the neck, spine and other joints. He goes to bed at midnight on weekdays and between 2-3 a.m. on the weekends. He wakes up 2-3 times throughout the night to adjust his position and is able to fall back asleep quickly. He wakes up at 7:00 a.m. on weekdays and between 10 to 10:30 a.m. on the weekends. He typically gets 6-1/2-7 hours of sleep per night. He does not stay in bed long after waking up in the morning. He currently lives with his . He will occasionally consume caffeinated tea within 2 hours of bedtime. He denies engaging in physical exercise before bedtime. He will watch television before falling asleep. He denies taking naps in the afternoon or the evening. He consumes 24-32 oz of caffeinated beverage per day. He quit smoking cigarettes 13 in half years ago. He consumes 4-5 alcoholic beverages per week. He does use an unspecified recreational drug. [facility] Past Medical History Medical History (Updated 08/27/25 @ 12:43 by Kendra Herrera MD) Restless leg Dyspnea and respiratory abnormalities History of smoking 10-25 pack years Chest heaviness HERLINDA (obstructive sleep apnea) Bronchitis BMI 32.0-32.9,adult Low vitamin D level Hemorrhoids BMI 34.0-34.9,adult Obesity Heartburn Surgical History Surgical History H/O: hemorrhoidectomy REUA, Excision of external hemrrhoids on 09/28/22 History of surgical removal of ganglion cyst Family History Family History Mother Peripheral arterial disease Grandparent Family history of coronary artery disease Social History Social History Smoking packs per day: 0.5 Smoking cigarettes per day: 10.0 Years smoked: 15 Smoking pack-years: 7.50 Smoking status: Former smoker Tobacco type: cigarettes Smoking end date: 11/08/11 Alcohol intake: current Drinks per week: 10 Substance use: current Substance use type: marijuana Do You Feel Safe in your Home?: Yes Lack of Transportation: No Lack of Food: Never True Current Housing: I Have Housing Concerned About Future Housing: No Difficulty Paying Gas/Electric Bills: No Difficulty Paying for Meds: No Currently Unemployed: No Education: High School Diploma/GED Difficulty w/ Childcare or Family Care: No Living arrangements: with family Occupation/Education: occupation 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 Gender identity (if verbalized by the patient): Male Spiritual care concerns: No Medications Home Medications ?Medication ?Instructions ?Recorded ?Confirmed ?Type fluticasone 100 mcg-salmeterol 50 1 inh inhalation Q12H #60 ea 06/21/25 08/21/25 Rx mcg/dose blistr powdr for inhalation (Advair Diskus) zolpidem 10 mg tablet 10 mg PO QHS PRN sleep for study 06/21/25 08/21/25 Rx #3 tabs albuterol 90 mcg-budesonide 80 2 inh inhalation ONCE #5.9 grams 08/21/25 08/21/25 Rx mcg/actuation HFA aerosol inhaler (Airsupra) Sleep Procedure A full CPAP polysomnogram using the [employer] multi-channel system recorded the standard physiologic parameters including EEG, EOG, submentalis EMG, anterior tibialis EMG, EKG, body position, nasal and oral airflow using nasal pressure sensor and thermistor. Respiratory parameters of chest and abdominal movements were recorded with Respiratory Inductance Plethysmography belts. Oxygen saturation was recorded by pulse oximetry. Video monitoring was also performed. Sleep stages, periodic limb movements, and EEG arousals were scored in 30 second epochs according to the criteria of the AASM Scoring Manual. The Apnea-Hypopnea Index was calculated using CMS guidelines for definition of hypopnea while scoring respiratory events. The patient self-administered Ambien at the beginning of the study. The patient was started on CPAP using a medium ResMed AirTouch N30 I nasal cushion and heated humidity, CPAP was initiated at 5 cm and titrated in increments of 1 up to a CPAP of 13 cm. At CPAP 12 cm the patient spent 142 minutes in bed, 4.5 minutes awake, 110 minutes in non-REM and 27.5 minutes in REM. Sleep efficiency was 96.8%. The residual apnoea hypopnoea index was 2.6. He had 1 central apnea and 6 hypopneas. The average saturation was 93%. The patient had REM in the supine position. Sleep was consolidated. CPAP 12 cm is the optimal pressure. Sleep Architecture The total recording time was 433.6 minutes. The total sleep time was 411.0 minutes. Sleep latency was 3.6 minutes. REM latency was 67.5 minutes. Sleep efficiency was 94.8%. The patient had 17 awakenings for an awakening index of 2.5. Wake after Sleep Onset time was 18.5 minutes. The patient spent 12.0 minutes, 2.9% of total sleep time in Stage N1. The patient spent 271.0 minutes, 65.9% in Stage N2. The patient spent 41.0 minutes, 10.0% in Stage N3. The patient spent 87.0 minutes, 21.2% in Stage REM. Respiratory Analysis The patient had 24 hypopneas, no obstructive apneas, no mixed apneas, and 3 central apneas for an overall Apnea Hypopnea Index of 3.9 events per hour. The REM Apnea Hypopnea Index was 9.7. The NREM Apnea Hypopnea Index was 2.4. The patient had a Central Apnea Hypopnea Index of 0.4. There were no Respiratory Effort Related Arousals. The Respiratory Disturbance Index is 5.7 events per hour. There was no evidence of Ollie-Matos Respirations. Arousals There were 55 total arousals for an arousal index of 8.0. There were 37 spontaneous arousals for an index of 5.4. There were 4 arousals due to respiratory events for an index of 0.6. There were 14 arousals due to periodic limb movements for an index of 2.0. There were 1 arousals due to isolated limb movements for an index of 0.1. Periodic Limb Movements The patient had 22 isolated limb movements with an index of 3.2. The patient had 393 periodic limb movements with index of 57.4. Patient had a total of 415 limb movements with a total limb movement index of 60.6. Oximetry Data The patient had an average oxygen saturation of 92.8% in sleep with a minimum oxygen saturation of 84% and a maximum oxygen saturation of 96%. The patient had 30 oxygen desaturations that were 4% or greater resulting in an Oxygen Desaturation Index of 4.4. The patient spent 3 minutes, 0.7% of total sleep time with an oxygen saturation below 88%. Snoring Profile During titration, snoring was eliminated. Cardiac Profile The EKG showed normal sinus rhythm. The patient had an average pulse rate of 66 bpm with a minimum pulse rate of 38 bpm and a maximum pulse rate of 88 bpm. PVCs frequently noted without arrhythmias. EEG Profile No signs of seizure activity seen. Assessment and Plan Assessment and Plan (1) HERLINDA (obstructive sleep apnea): Code(s): G47.33 - Obstructive sleep apnea (adult) (pediatric) Status: Acute Assessment and Plan: This full night CPAP titration on 07/31/2025 shows an optimal pressure of CPAP 12 cm using a medium ResMed AirTouch N30 I nasal cushion and heated humidity. At CPAP 12 cm, the patient spent 142 minutes in bed, 4.5 minutes awake, 110 minutes in non-REM and 27.5 minutes in REM. Sleep efficiency was 96.8%. The residual apnoea hypopnoea index was 2.6. He had 1 central apnea and 6 hypopneas. The average saturation was 93%. The patient had REM in the supine position. Sleep was consolidated. CPAP 12 cm is the optimal pressure. The patient should be prescribed this ResMed equipment as well as tubing, filters and reservoir. This should be used with all episodes of sleep. Compliance should be reviewed within 31-90 days of starting therapy for usage greater than 4 hours per night greater than 70% of the nights. The patient should be asked about symptoms such as excessive daytime sleepiness, quality of sleep, decreased nocturia, increased mental functioning such as memory, mood, and concentration. BMI is 34. Weight management is advised. Clinical data suggests that weight loss of 10% can reduce the severity of respiratory events and snoring and improve AHI by as much as 25%. (2) Restless leg: Code(s): G25.81 - Restless legs syndrome Status: Acute Assessment and Plan: He has frequent uncomfortable crawling feelings in his legs at night which he disclosed on his initial sleep history. He had excessive kicking during the night which did not cause arousals. Sometimes legs kick more frequently during the initiation of CPAP, CPAP kick, and this resolves with routine use of CPAP. His ferritin level was normal on 08/17/2025, 86.5 ng/mL. Data The data obtained during this sleep study is adequate for interpretation. Certification This sleep study has been reviewed by a board certified sleep medicine physician.
[2025-08-27 12:45] VITALS: BMI 34.0
== END 2025-08-01 07:12 | disposition home or self-care (01) ==
LOC: ANHCSM 08:11
PROVIDERS: PCP Family Medicine; Visit Provider Family Medicine
DX: G47.33 Obstructive sleep apnea (adult) (pediatric) (principal); G25.81 Restless legs syndrome; Z68.34 Body mass index [BMI] 34.0-34.9, adult
CPT/HCPCS: 95811

== ENCOUNTER 2025-08-17 07:28 | Outpatient (CLI) | payer BC, SELFPAY ==
[2025-08-17 09:06] LABS: Ferritin 86.50 ng/mL (11.1-264)
== END 2025-08-17 07:29 | disposition home or self-care (01) ==
PROVIDERS: PCP Family Medicine; Visit Provider Physician Assistant Medical
DX: G25.81 Restless legs syndrome (principal)
CPT/HCPCS: 36415; 82728

== ENCOUNTER 2025-10-15 13:40 | Outpatient (CLI) | payer BC, SELFPAY ==
--- NOTE | ~2025-10-15 | CT_ITS ---
EXAMINATION:CT chest high resolution wo ia DATE: 10/15/2025 13:56 INDICATION: Nicotine dependence TECHNIQUE: Computed tomography (CT) of the chest was performed without intravenous contrast. The dose-length product (DLP) was 613.54 mGy-cm. COMPARISON: None. FINDINGS: Mild fibrotic appearing changes in the left lung base. No consolidation effusion or pneumothorax. No discretely defined suspicious lung nodules or masses seen. Heart size normal with no significant pericardial effusion or bulky lymphadenopathy. Central and large airways are patent. Mild coronary artery and atherosclerotic vascular calcifications. Bones appear intact. No acute process seen in the visualized portions of the upper abdomen. IMPRESSION: 1. Fibrotic appearing changes in the left lung base. Lung RADS 2. Correlate with follow-up low-dose lung cancer screening chest CT in 12 months. 2. Other findings as above. Reviewed, dictated and finalized at location A. E SCHEDULER IMPRESSION: 1. Fibrotic appearing changes in the left lung base. Lung RADS 2. Correlate wit h follow-up low-dose lung cancer screening chest CT in 12 months. 2. Other findings as above.
== END 2025-10-15 13:41 | disposition home or self-care (01) ==
LOC: MICIMG 13:41
PROVIDERS: PCP Family Medicine; Visit Provider Nurse Practitioner Adult Health
DX: R91.8 Other nonspecific abnormal finding of lung field (principal); I25.10 Atherosclerotic heart disease of native coronary artery without angina pectoris; Z87.891 Personal history of nicotine dependence
CPT/HCPCS: 71250

== ENCOUNTER 2025-10-16 02:06 | Day surgery (SDC) | payer BC, SELFPAY ==
[2025-09-24 15:52] VITALS: BMI 33.9
[2025-10-16 08:48] VITALS: BP 139/104; PULSE 86; RESP 18; TEMP 36.1; O2SAT 97; BMI 34.1
--- NOTE | 2025-10-16 08:57 | P.PNAN_ITS ---
Anes - Initial Pre Proc Eval Procedure: Operation Date: 10/16/25 10:00 Proposed Procedures p Screening Colonoscopy - Conrad Garcia MD s [facility] Hemorrhoid Treatment - Conrad Garcia MD Date/Time: 10/16/25 08:57 Surgeon: Conrad Garcia MD Pre Op Diagnosis: Other hemorrhoids, screening Patient Data Age: 50 Gender: M Height: 1.83 m Weight: 114.2 kg Last Vital Signs Temp 36.1 C L 10/16/25 08:48 Pulse 86 10/16/25 08:48 Resp 18 10/16/25 08:48 BP 139/104 H 10/16/25 08:48 Pulse Ox 97 10/16/25 08:48 O2 Del Method Room Air 10/16/25 08:48 Allergies Allergy/AdvReac Type Severity Reaction Status Date / Time No Known Allergies Allergy Verified 10/16/25 08:46 Home Medications ?Medication ?Instructions ?Recorded ?Confirmed ?Type zolpidem 10 mg tablet 10 mg PO QHS PRN sleep for s sterling 06/21/25 09/24/25 Rx #3 tabs albuterol 90 mcg-budesonide 80 2 inh inhalation ONCE # 5.9 grams 08/21/25 10/16/25 Rx mcg/actuation HFA aerosol inhaler (Airsupra) fluticasone 500 mcg-salmeterol 50 1 inh inhalation Q12 H 09/18/25 10/16/25 History mcg/dose blistr powdr for inhalation Patient hx anesthesia problems: none Family hx anesthesia problems: none Results Review: All pre-operative results and documents have been reviewed as part of the pre- operative evaluation. [facility] Past Medical History Medical History Neuropathy Restless leg Dyspnea and respiratory abnormalities History of smoking 10-25 pack years Chest heaviness HERLINDA (obstructive sleep apnea) Bronchitis BMI 32.0-32.9,adult Low vitamin D level Hemorrhoids BMI 34.0-34.9,adult Obesity Heartburn Surgical History Surgical History H/O: hemorrhoidectomy REUA, Excision of external hemrrhoids on 09/28/22 History of surgical removal of ganglion cyst Family History Family History Mother Peripheral arterial disease Grandparent Family history of coronary artery disease Social History Social History Smoking packs per day: 0.5 Smoking cigarettes per day: 10.0 Years smoked: 15 Smoking pack-years: 7.50 Smoking status: Former smoker Tobacco type: e-cigarettes/vaping Smoking end date: 11/08/11 Alcohol intake: current Drinks per week: 2 Alcohol use details: Socially Substance use: current Substance use type: marijuana Other substance usage details: Vape Lack of Transportation: No Lack of Food: Never True Current Housing: I Have Housing Concerned About Future Housing: No Difficulty Paying Gas/Electric Bills: No Difficulty Paying for Meds: No Currently Unemployed: No Education: High School Diploma/GED Difficulty w/ Childcare or Family Care: No Living arrangements: with family Additional living arrangements comments: with sp Occupation/Education: occupation 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 Informed Consent: The patient's anesthetic plan and its attendant risks and benefits were discussed with the patient/family/POA. Questions were solicited and answers provided to the satisfaction of the patient/family/POA.
[2025-10-16] MEDS: LACTATED RINGERS 1,000 ML 150 ML IV CONT (08:58)
--- NOTE | 2025-10-16 09:31 | PM.HPGS ---
History of Present Illness History of Present Illness Consent: Risks, benefits, and alternatives have been discussed and questions answered. Patient agrees to proceed with procedure. Chief complaint: Other hemorrhoids, screening Narrative: Albert Dorman II is a 50 year old male here for first screening colonoscopy, had also hemorrhoidectomy about 2 years ago but sometimes flaring up Review of Systems Review of Systems: All systems reviewed & are unremarkable except as noted in HPI and below PMFSH Past Medical History Medical History Neuropathy Restless leg Dyspnea and respiratory abnormalities History of smoking 10-25 pack years Chest heaviness HERLINDA (obstructive sleep apnea) Bronchitis BMI 32.0-32.9,adult Low vitamin D level Hemorrhoids BMI 34.0-34.9,adult Obesity Heartburn Surgical History Surgical History H/O: hemorrhoidectomy REUA, Excision of external hemrrhoids on 09/28/22 History of surgical removal of ganglion cyst Family History Family History Mother Peripheral arterial disease Grandparent Family history of coronary artery disease Social History Social History Smoking packs per day: 0.5 Smoking cigarettes per day: 10.0 Years smoked: 15 Smoking pack-years: 7.50 Smoking status: Former smoker Tobacco type: e-cigarettes/vaping Smoking end date: 11/08/11 Alcohol intake: current Drinks per week: 2 Alcohol use details: Socially Substance use: current Substance use type: marijuana Other substance usage details: Vape Lack of Transportation: No Lack of Food: Never True Current Housing: I Have Housing Concerned About Future Housing: No Difficulty Paying Gas/Electric Bills: No Difficulty Paying for Meds: No Currently Unemployed: No Education: High School Diploma/GED Difficulty w/ Childcare or Family Care: No Living arrangements: with family Additional living arrangements comments: with sp Occupation/Education: occupation 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 Gender identity (if verbalized by the patient): Male Spiritual care concerns: No Meds Home Medications and Allergies Home Medications ?Medication ?Instructions ?Recorded ?Confirmed ?Type zolpidem 10 mg tablet 10 mg PO QHS PRN sleep for study 06/21/25 09/24/25 Rx #3 tabs albuterol 90 mcg-budesonide 80 2 inh inhalation ONCE #5.9 grams 08/21/25 10/16/25 Rx mcg/actuation HFA aerosol inhaler (Airsupra) fluticasone 500 mcg-salmeterol 50 1 inh inhalation Q12H 09/18/25 10/16/25 History mcg/dose blistr powdr for inhalation Allergies Allergy/AdvReac Type Severity Reaction Status Date / Time No Known Allergies Allergy Verified 10/16/25 08:46 Vital Signs Vital Signs - 24 hr 10/16/25 08:48 Temperature 97 F L Pulse Rate 86 Respiratory Rate 18 Blood Pressure 139/104 H Pulse Oximetry 97 Oxygen Delivery Room Air Exam Const: General: comfortable and no acute distress HENMT: Face/Nose/Sinus: Normal nares present Eyes: General: appearance normal, both eyes and all related structures Neck: Neck: no JVD Resp: Auscultation: clear to auscultation bilaterally Cardio: Rate: regular rate Rhythm: regular rhythm GI: Inspection: non-distended GI Palp: Yes Soft to palpation Skin: General skin exam: normal color Extrem: General: normal to inspection Psych: Mental Status: mental status grossly normal Assessment and Plan Assessment and plan (1) Screening for malignant neoplasm of colon: Code(s): Z12.11 - Encounter for screening for malignant neoplasm of colon Status: Acute Assessment and Plan: colonoscopy (2) Internal hemorrhoids with complication: Code(s): K64.8 - Other hemorrhoids Status: Acute Assessment and Plan: will assess if more internal hemorrhoids and treat with irc
--- NOTE | 2025-10-16 09:44 | SUR.OPER ---
Colonoscopy stop time 943. IRC start time 11
--- NOTE | 2025-10-16 09:45 | S_PTH ---
PATIENT: Albert Dorman II LOC: [facility]#:[id number] AGE/SX: 50/M ROOM: RE10/16/[address]: Conrad Garcia MD : 1975 BED: DIS: 10/16/2025 SPEC #: [id number] RECD: 10/16/25 11:26 STATUS: BECKI ALMODOVAR #: [id number] ARNOLD: 10/16/25 09:[address]: Conrad Garcia DEPT: [facility] Surgical RECD BY: Dariana West MLT, ([facility]) ENTERED: 10/16/25 11:26 SP TYPE: Surgical OTHR DR: Neto Stone MD Tissues: A - Colon Polypectomy Procedures: Hematoxylin and Eosin Stain Gross and Microscopic Level 4
--- NOTE | 2025-10-16 09:45 | W.PM.PROC2 ---
Procedure Note - Detailed Date of Procedure 10/16/25 Pre-op Diagnosis Other hemorrhoids Post-op Diagnosis Same Procedure Performed irc of internal hemorrhoids Surgeon Conrad Garcia MD Anesthesia MAC (also had colonoscopy) Findings noted small size internal hemorrhoids Description of Procedure using anoscopy noted small size internal hemorrhoids, no fissure, no bleeding. Then advanced IRC probe and hemorrhoids treated for 1.5 seconds x6
[2025-10-16 09:49] VITALS: BP 142/88; PULSE 78; RESP 23; O2SAT 94
[2025-10-16 09:59] VITALS: BP 144/93; PULSE 87; RESP 23; O2SAT 96
[2025-10-16 10:09] VITALS: BP 148/86; PULSE 72; RESP 20; O2SAT 97
== END 2025-10-16 10:20 | disposition home or self-care (01) ==
PROVIDERS: PCP Family Medicine; Referring Provider Nurse Practitioner Family; Visit Provider Internal Medicine Gastroenterology
PROC: 0DJD8ZZ Inspection of Lower Intestinal Tract, Via Natural or Artificial Opening Endoscopic (ICD-10-PCS; CPT 45378; principal; 2025-10-16 10:00)
PROC: (CPT 46930; 2025-10-16 10:00)
DX: Z12.11 Encounter for screening for malignant neoplasm of colon (principal); D12.4 Benign neoplasm of descending colon; K64.8 Other hemorrhoids; K57.30 Diverticulosis of large intestine without perforation or abscess without bleeding; G25.81 Restless legs syndrome; G47.33 Obstructive sleep apnea (adult) (pediatric); E55.9 Vitamin D deficiency, unspecified; K21.9 Gastro-esophageal reflux disease without esophagitis; G62.9 Polyneuropathy, unspecified; F12.90 Cannabis use, unspecified, uncomplicated; E66.9 Obesity, unspecified; Z68.34 Body mass index [BMI] 34.0-34.9, adult; Z79.51 Long term (current) use of inhaled steroids; Z98.890 Other specified postprocedural states; Z87.891 Personal history of nicotine dependence; Z82.49 Family history of ischemic heart disease and other diseases of the circulatory system
CPT/HCPCS: 45385; 46930; 88305; J2003; J2704; J7120